=== PATIENT | female | born 1975 | race Two or more races ===

== ENCOUNTER 2025-04-03 09:00 | Inpatient (IN) | payer OTHER ==
[~2025-04-03] VITALS: Ht 160 cm; Wt 76.2 kg
[2025-04-03 10:48] VITALS: BP 150/90
[2025-04-03] MEDS ORDERED: AVAPRO150 MG PO (10:49)
[2025-04-03] MEDS ORDERED: HYDRODIURIL12.5 MG PO (10:49)
[2025-04-03 11:35] LABS: URINE APPEARANCE Clear; URINE BILIRRUBIN Negative (NEGATIVE); URINE BLOOD Negative; URINE COLOR Yellow; URINE GLUCOSE Negative (NEGATIVE); URINE KETONE Negative (NEGATIVE); URINE LEUKOCYTE Negative; URINE NITRATE Negative; URINE PROTEIN Negative (NEGATIVE); URINE UROBILINOGEN 0.2 E.U./dl
[2025-04-03 11:40] LABS: URINE BACTERIA 54.0 uL (0.0-1933); URINE EPITHELIAL CELLS 11.5 uL (0.0-38.8); URINE RBC 28.5 uL (0.0-20.8); URINE WBC 1.9 uL (0.0-23.2)
[2025-04-03 11:42] LABS: URINE CAST 0.00 uL (0.0-1.40)
[2025-04-03 11:47] LABS: BASO % 0.4 % (0.1-1.2); EOS # 0.06 (0.04-0.54); EOS % 0.6 % (0.7-7.0); LYMPH # 1.52 (1.18-3.74); LYMPH % 16.1 % (19.3-53.1); MONO # 0.45 (0.24-0.82); MONO % 4.8 % (4.7-12.5); NEUT # 7.33 (1.56-6.13); NEUT % 77.8 % (34.0-71.1); RED CELL DISTRIBUTION WIDTH 18.9 % (11.6-14.4)
[2025-04-03 12:22] LABS: ALT/SGPT 30.0 U/L (12-78); AST/SGOT 21.0 U/L (15-37); BILIRUBIN TOTAL 0.52 mg/dL (0.3-1.2); BUN CREA RATIO 16.0 (7.0-25.0); CREATININE SERUM 0.58 mg/dL (0.55-1.02); GFR 111.43; GLOBULINA 4.0 G/DL (2.4-3.5); GLUCOSE FASTING 80.0 mg/dL (65-100); OSMOLALITY SERUM 277.0 MOSM/KG (275-295)
[2025-04-03 13:01] LABS: INR 0.96
[2025-04-17] MEDS ORDERED: POVIDONE-IODINE 118 ML BOTT TOP ONE (09:15)
[2025-04-17] MEDS ORDERED: METRONIDAZOLE/SODIUM CHLORIDE 500 MG/100 ML PIGGYBACK IV ONE (09:15)
[2025-04-17] MEDS ORDERED: CEFOXITIN SODIUM 2,000 MG VIAL IV ONE (09:15)
[2025-04-17] MEDS ORDERED: SUGAMMADEX SODIUM 200 MG/2 ML VIAL IV ONE (09:45)
[2025-04-17] MEDS ORDERED: CHLORHEXIDINE GLUCONATE 120 ML BOTTLE TOP ONE (09:45)
[2025-04-17] MEDS ORDERED: HEMOSTATIC MATRIX 1 KIT KIT TOP ONE (10:00)
[2025-04-17] MEDS ORDERED: SURGIFLO APPLICATOR 1 EACH APPL TOP ONE (10:00)
[2025-04-17] MEDS ORDERED: RINGERS SOLUTION,LACTATED 1,000 ML IV SCH (10:45)
[2025-04-17] MEDS ORDERED: MORPHINE SULFATE 4 MG/ML VIAL IV PRN (10:45)
[2025-04-17] MEDS ORDERED: KETOROLAC TROMETHAMINE 30 MG VIAL IV PRN (10:45)
[2025-04-17] MEDS ORDERED: ONDANSETRON HCL 2 MG/ML VIAL IV PRN (10:45)
[2025-04-17] MEDS ORDERED: SIMETHICONE 125 MG CAPSULE PO SCH (13:00)
[2025-04-17 14:37] VITALS: BP 126/74
[2025-04-17 15:37] LABS: BASO % 0.2 % (0.1-1.2); EOS # 0.00 (0.04-0.54); EOS % 0.0 % (0.7-7.0); LYMPH # 0.76 (1.18-3.74); LYMPH % 4.7 % (19.3-53.1); MEAN PLATELET VOLUME 10.50 fl (9.4-12.4); MONO # 0.46 (0.24-0.82); MONO % 2.8 % (4.7-12.5); NEUT # 15.00 (1.56-6.13); NEUT % 91.9 % (34.0-71.1); RED CELL DISTRIBUTION WIDTH 17.5 % (11.6-14.4)
[2025-04-17 18:15] VITALS: BP 133/70
[2025-04-17 20:20] VITALS: BP 145/80
[2025-04-18] VITALS: BP 127/77
[2025-04-18 04:00] VITALS: BP 129/78
[2025-04-18] MEDS ORDERED: ACETAMINOPHEN WITH CODEINE 1 UDTAB TABLET PO PRN (06:00)
[2025-04-18 08:48] VITALS: BP 152/82
[2025-04-18] MEDS ORDERED: NAPROXEN 500 MG TABLET PO PRN (09:00)
[2025-04-18] MEDS ORDERED: NAPROXEN500 MG PO (09:06)
[2025-04-18] MEDS ORDERED: ACETAMINOPHEN-1 EAC2 PO (09:06)
[2025-04-18] MEDS ORDERED: COLACE100 MG PO (09:07)
== END 2025-04-18 12:11 | disposition home or self-care (01) | DRG 743 ==
LOC: OB/GYN 04-17 09:00 → O/R 04-17 09:00 → SURG 04-17 09:00 → OB/GYN 04-17 13:41
PROVIDERS: ADMIT Obstetrics & Gynecology; ATTEND Obstetrics & Gynecology
PROC: 0UT7FZZ Resection of Bilateral Fallopian Tubes, Via Natural or Artificial Opening With Percutaneous Endoscopic Assistance (ICD-10-PCS; 2025-04-17)
PROC: 0TJB8ZZ Inspection of Bladder, Via Natural or Artificial Opening Endoscopic (ICD-10-PCS; 2025-04-17)
PROC: 0UT9FZZ Resection of Uterus, Via Natural or Artificial Opening With Percutaneous Endoscopic Assistance (ICD-10-PCS; principal; 2025-04-17 11:30)
DX: D25.1 Intramural leiomyoma of uterus (principal); D25.2 Subserosal leiomyoma of uterus; D25.0 Submucous leiomyoma of uterus; N84.1 Polyp of cervix uteri; N92.0 Excessive and frequent menstruation with regular cycle; R10.20 Pelvic and perineal pain unspecified side; N81.11 Cystocele, midline